=== PATIENT | male | born 1960 | race Caucasian/White ===

== ENCOUNTER 2020-02-18 02:54 | Emergency (ER) | payer OTHER ==
[~2020-02-18] VITALS: Ht 165.1 cm; Wt 79.8 kg
[2020-02-18 03:48] LABS: UA SPECIFIC GRAVITY 1.025 (1.005-1.035); microscopic required? YES; urine erythrocyte 3+ (NEGATIVE)
[2020-02-18 04:41] LABS: BASOPHIL % 0.1 % (0-2); PLATELET COUNT 142 x10^3mcL (130-400)
[2020-02-18 04:46] LABS: CALCIUM 8.4 mg/dL (8.5-10.1); CARBON DIOXIDE 31.6 mmol/L (21-32); CHLORIDE SERUM 99 mmol/L (98-107); CREATININE SERUM 1.1 mg/dL (0.7-1.3); GFR1 > 60 mL/min; GLUCOSE SERUM 135 mg/dL (74-106); POTASSIUM SERUM 3.8 mmol/L (3.5-5.1); SODIUM SERUM 135 mmol/L (136-145)
[2020-02-18 04:50] LABS: ALKALINE PHOSPHATASE 52 U/L (46-116); ALT/SGPT 47 U/L (16-63); AMYLASE 67 U/L (25-115); AST/SGOT 28 U/L (15-37); BILIRUBIN TOTAL 0.86 mg/dL (0.20-1.00); LIPASE 122 IU/L (73-393); TOTAL PROTEIN, SERUM 7.6 g/dL (6.4-8.2)
[2020-02-18 06:10] VITALS: BP 156/80
== END 2020-02-18 06:00 | disposition home or self-care (01) ==
LOC: ED 02:54
PROVIDERS: Emergency Medicine
DX: N20.0 Calculus of kidney (principal); K59.00 Constipation, unspecified
CPT/HCPCS: J1885; J2405; J3010; J7030